=== PATIENT | male | born 1940 | race Caucasian/White ===

== ENCOUNTER 2022-08-20 12:27 | Emergency (ER) | payer OTHER ==
--- OUTSIDE RECORDS SUMMARY | 2022-08-20 12:31 | XMS REPORT | Continuity of Care Document ---
:1940 Author Organization [facility] t Address [address] [place] [address] [address]. Melvin [address] [place] [address] Care Team Providers Name Role Phone Angelica Car Attending Clinician Unavailable Problems This patient has no known problems. Allergies, Adverse Reactions, Alerts This patient has no known allergies or adverse reactions. Medications This patient has no known medications. Procedures This patient has no known procedures. Encounters Start End Encounter Admission Attending Care Care Encounter Source Date/Time Date/Time Type Type Clinicians Facility Department ID 2021-11[id number] Common 11:17:28 Angelica [id number] [facility] 2021-11-28 [facility] [id number] Common 11:16:44 Angelica [id number] [facility] 2021-11-[address] [id number] Common 11:06:43 Angelica [id number] [facility] Results This patient has no known results.
[2022-08-20] MEDS ORDERED: ASPIRIN 81 MG CHEWABLE TABLET ONE (12:43)
[2022-08-20] MEDS ORDERED: NA CHLORIDE 0.9% 500 ML ONE (12:44)
[2022-08-20 13:09] LABS: Hematocrit 46.7 % (39.6-49.0); Lymphocytes % 34.7 % (15.3-44.8); MCV 85.2 fL (80-100); MPV 7.9 fL (7.6-11.3); RBC Red Blood Cell Count 5.48 M/uL (4.33-5.43)
[2022-08-20 13:15] LABS: Protime INR 1.03
[2022-08-20 13:26] LABS: Albumin 3.7 g/dL (3.4-5.0); Bilirubin Direct 0.2 mg/dL (0-0.2); Bilirubin Total 0.5 mg/dL (0.2-1.0); Magnesium 2.3 mg/dL (1.8-2.4); Potassium 4.6 mmol/L (3.5-5.1); Protein, Total 7.9 g/dL (6.4-8.2); Troponin High Sensitivity 8.1 pg/mL (<58.9)
--- NOTE | 2022-08-20 13:32 | ER ---
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 Coronavirus screen: Vaccine status: ll1 Patient reports receiving the 2nd dose of the covid vaccine. Client denies travel out of the [place] in the last 14 days. At this time, the client does not indicate any symptoms associated with coronavirus-19. Ebola Screen: Patient denies travel to an Ebola-affected area in the 21 days before illness onset. Initial Sepsis Screen: Does the patient meet any 2 criteria? No. Patient's initial sepsis screen is negative. Does the patient have a suspected source of infection? No. Patient's initial sepsis screen is negative. Risk Assessment: Do you want to hurt yourself or someone else? Patient reports no desire to harm self or others. Onset of symptoms was August 19, 2022. 12:42 Method Of Arrival: Ambulatory ll1 12:42 Acuity: LISETH 3 ll1 Triage Assessment: 12:43 General: Appears in no apparent distress. Behavior is cooperative, appropriate for age. ll1 Pain: Complains of pain in chest Pain currently is 5 out of 10 on a pain scale. Pain began 1 day ago. Is intermittent, episodic. Cardiovascular: Parent/caregiver reports patient has had chest pain. Historical: - Allergies: 12:42 No Known Allergies; ll1 - PMHx: 12:42 Dementia; low BP; ll1 - PSHx: 12:42 None; ll1 - Immunization history:: Client reports receiving the 2nd dose of the Covid vaccine. - Social history:: Smoking status: Patient denies any tobacco usage or history of. - Family history:: not pertinent. Screenin:16 Abuse screen: Denies threats or abuse. Denies injuries from another. Nutritional tp1 screening: No deficits noted. Tuberculosis screening: No symptoms or risk factors identified. Fall Risk No fall in past 12 months (0 pts). Secondary diagnosis (15 points) dementia, IV access (20 points). Ambulatory Aid- None/Bed Rest/Nurse Assist (0 pts). Gait- Normal/Bed Rest/Wheelchair (0 pts) Mental Status- Oriented to own ability (0 pts). Total White Fall Scale indicates Low Risk Score (25-44 pts). Assessment: 12:40 General: Appears in no apparent distress. comfortable, Behavior is calm, cooperative. tp1 Pain: Complains of pain in chest Pain does not radiate. Unable to use pain scale. Patient appears to be grimacing, pt states he is pain, but will not rate on a 0-10 scale. Neuro: Level of Consciousness is awake, alert, obeys commands, Oriented to person, place, situation. Neuro: Denies blurred vision headache. Cardiovascular: Capillary refill < 3 seconds in bilateral fingers Patient's skin is warm and dry. Respiratory: Airway is patent Respiratory effort is even, unlabored. GI: Abdomen is flat, non-distended, Patient currently denies diarrhea, nausea, vomiting. : No signs and/or symptoms were reported regarding the genitourinary system. EENT: No signs and/or symptoms were reported regarding the EENT system. Derm: Skin is pink, warm \T\ dry. Musculoskeletal: Circulation, motion, and sensation intact. 13:40 Reassessment: Patient appears in no apparent distress at this time. No changes from vg1 previously documented assessment. Patient and/or family updated on plan of care and expected duration. Pain level reassessed. Patient is alert, oriented x 3, equal unlabored respirations, skin warm/dry/pink. 14:40 Reassessment: Patient appears in no apparent distress at this time. No changes from tp1 previously documented assessment. Patient is alert, oriented x 3, equal unlabored respirations, skin warm/dry/pink. Patient denies pain at this time. 14:50 Reassessment: escorted to CT via wheelchair by [employer]. tp1 15:02 Reassessment: Patient is alert/active/playful, equal unlabored respirations, skin tp1 warm/dry/pink. returned from CT. 15:07 Reassessment: Xray at bedside. tp1 15:26 Reassessment: escorted to ultrasound via wheelchair by [employer]. tp1 15:59 Reassessment: discharge pending diagnostic results. tp1 16:41 Reassessment: PT persistent on leaving before Troponin resulted, Nurse tried to educate tp1 PT and , Charge nurse attempted to educated PT and , Dr. Steward attempted to educate PT and . PT and persistent on leaving. Vital Signs: 12:42 BP 129 / 78; Pulse 53; Resp 16; Temp 97.7; Pulse Ox 100% ; Weight 54.43 kg; Height 5 ll1 ft. 7 in. (170.18 cm); Pain 5/10; 13:00 BP 160 / 80; Pulse 75; Resp 16; Pulse Ox 100% on R/A; tp1 14:00 BP 138 / 100; Resp 19; Pulse Ox 100% on R/A; tp1 15:07 BP 161 / 87; Pulse 91; Resp 16; Pulse Ox 100% on R/A; tp1 16:28 BP 152 / 95; Pulse 96; Resp 16; Pulse Ox 100% on R/A; tp1 12:42 Body Mass Index 18.79 (54.43 kg, 170.18 cm) ll1 ED Course: 12:31 Patient arrived in ED. rg4 12:32 Carroll Steward MD is Attending Physician. linnea 12:40 Nancy Crespo, NIESHA is Primary Nurse. tp1 12:40 Patient has correct armband on for positive identification. Placed in gown. Bed in low tp1 position. Call light in reach. Side rails up X2. Adult w/ patient. 12:40 Client placed on continuous cardiac and pulse oximetry monitoring. NIBP monitoring tp1 applied. 12:41 Arm band placed on Patient placed in an exam room, on a stretcher. ll1 12:43 Triage completed. ll1 13:14 EKG done. Inserted saline lock: 22 gauge in right forearm, using aseptic technique. tp1 14:23 Note: pt wanted to wait on having the chest x-ray done bc they are out of network.. mh1 14:43 Assisted to bathroom. tp1 14:55 CT Chest For PE Angio In Process Unspecified. EDMS 15:25 XRAY Chest (1 view) In Process Unspecified. EDMS 15:40 IV discontinued, intact, bleeding controlled, No redness/swelling at site. Pressure tp1 dressing applied. 15:40 No provider procedures requiring assistance completed. Patient maintains SpO2 tp1 saturation greater than 95% on room air. 15:54 Serg Sin MD is Referral Physician. linnea 16:29 US Extremity Venous W Compression [place] In Process Unspecified. EDMS Administered Medications: 12:48 Drug: Aspirin 81 mg Route: PO; tp1 14:44 Follow up: Response: No adverse reaction tp1 13:14 Drug: NS 0.9% 500 ml Route: IV; Rate: bolus; Site: right forearm; tp1 14:44 Follow up: IV Status: Completed infusion; IV Intake: 500ml tp1 14:30 Drug: Pepcid (famotidine) 20 mg Route: IVP; Site: right wrist; tp1 16:00 Follow up: Response: No adverse reaction tp1 14:39 Drug: PlaVIX (clopidogrel) 75 mg Route: PO; tp1 16:00 Follow up: Response: No adverse reaction tp1 14:44 Not Given (Patient Refused): Lovenox (enoxaparin) 1 mg/kg Sub-Q once tp1 Medication: 16:51 VIS not applicable for this client. tp1 Intake: 14:44 IV: 500ml; Total: 500ml. tp1 Outcome: 13:31 ER care complete, transfer ordered by . linnea 15:54 Discharge ordered by MD. linnea 16:51 Discharged to home ambulatory, with family. tp1 16:51 Condition: good 16:51 Discharge instructions given to patient, family, Instructed on discharge instructions, follow up and referral plans. Demonstrated understanding of instructions, follow-up care. 16:51 Patient left the ED. tp1 Signatures: Dispatcher [employer] EDMS Carroll Steward MD MD cha Harvey, Martha 1 Jeniffer Tyson 4 Berna Tyson, RN RN vg1 Cassia Salazar RN RN ll1 Nancy Crespo RN RN tp1
--- NOTE | 2022-08-20 13:32 | EDPHYS ---
Physician Documentation [facility] Name: Kvng Epstein Age: 82 yrs Sex: Male : 1940 Arrival Date: 08/20/2022 Time: 12:31 Bed 5 Private MD: ED Physician Carroll Steward HPI: 08/20 13:24 This 82 yrs old Male presents to ER via Ambulatory with complaints of Chest linnea Pain. 13:24 The patient or guardian reports chest pain that is located primarily in the substernal linnea area. Onset: 1 day(s) ago. The pain does not radiate. Associated signs and symptoms: The patient has no apparent associated signs or symptoms. The chest pain is described as aching, a pressure. Duration: The patient or guardian reports multiple episodes, with no pattern. Modifying factors: The symptoms are alleviated by nothing. the symptoms are aggravated by activity. Severity of pain: At its worst the pain was moderate in the emergency department the pain has improved moderately. Historical: - Allergies: 12:42 No Known Allergies; ll1 - PMHx: 12:42 Dementia; low BP; ll1 - PSHx: 12:42 None; ll1 - Immunization history:: Client reports receiving the 2nd dose of the Covid vaccine. - Social history:: Smoking status: Patient denies any tobacco usage or history of. - Family history:: not pertinent. ROS: 13:24 Constitutional: Negative for fever, chills, and weight loss, Eyes: Negative for injury, linnea pain, redness, and discharge, ENT: Negative for injury, pain, and discharge, Neck: Negative for injury, pain, and swelling, Respiratory: Negative for shortness of breath, cough, wheezing, and pleuritic chest pain, Abdomen/GI: Negative for abdominal pain, nausea, vomiting, diarrhea, and constipation, Back: Negative for injury and pain, : Negative for injury, bleeding, discharge, and swelling, MS/Extremity: Negative for injury and deformity, Skin: Negative for injury, rash, and discoloration, Neuro: Negative for headache, weakness, numbness, tingling, and seizure, Psych: Negative for depression, anxiety, suicide ideation, homicidal ideation, and hallucinations, Allergy/Immunology: Negative for hives, rash, and allergies, Endocrine: Negative for neck swelling, polydipsia, polyuria, polyphagia, and marked weight changes, Hematologic/Lymphatic: Negative for swollen nodes, abnormal bleeding, and unusual bruising. 13:24 Cardiovascular: Positive for chest pain. Exam: 13:24 Constitutional: This is a well developed, well nourished patient who is awake, alert, linnea and in no acute distress. Head/Face: Normocephalic, atraumatic. Eyes: Pupils equal round and reactive to light, extra-ocular motions intact. Lids and lashes normal. Conjunctiva and sclera are non-icteric and not injected. Cornea within normal limits. Periorbital areas with no swelling, redness, or edema. ENT: Nares patent. No nasal discharge, no septal abnormalities noted. Tympanic membranes are normal and external auditory canals are clear. Oropharynx with no redness, swelling, or masses, exudates, or evidence of obstruction, uvula midline. Mucous membranes moist. Neck: Trachea midline, no thyromegaly or masses palpated, and no cervical lymphadenopathy. Supple, full range of motion without nuchal rigidity, or vertebral point tenderness. No Meningismus. Chest/axilla: Normal chest wall appearance and motion. Nontender with no deformity. No lesions are appreciated. Respiratory: Lungs have equal breath sounds bilaterally, clear to auscultation and percussion. No rales, rhonchi or wheezes noted. No increased work of breathing, no retractions or nasal flaring. Abdomen/GI: Soft, non-tender, with normal bowel sounds. No distension or tympany. No guarding or rebound. No evidence of tenderness throughout. Back: No spinal tenderness. No costovertebral tenderness. Full range of motion. Male : Normal genitalia with no discharge or lesions. Skin: Warm, dry with normal turgor. Normal color with no rashes, no lesions, and no evidence of cellulitis. MS/ Extremity: Pulses equal, no cyanosis. Neurovascular intact. Full, normal range of motion. Neuro: Awake and alert, GCS 15, oriented to person, place, time, and situation. Cranial nerves II-XII grossly intact. Motor strength 5/5 in all extremities. Sensory grossly intact. Cerebellar exam normal. Normal gait. Psych: Awake, alert, with orientation to person, place and time. Behavior, mood, and affect are within normal limits. 13:24 ECG was reviewed by the Attending Physician. 13:24 Musculoskeletal/extremity: Extremities: all appear grossly normal, with no appreciated pain with palpation, ROM: no acute changes, Circulation is intact in all extremities. Sensation intact. Compartment Syndrome exam of affected extremity: is normal. DVT Exam: No signs of deep vein thrombosis. no pain, no swelling, no tenderness, negative Homans' sign noted on exam, no appreciated bluish discoloration, no erythema, no increased warmth. Vital Signs: 12:42 BP 129 / 78; Pulse 53; Resp 16; Temp 97.7; Pulse Ox 100% ; Weight 54.43 kg; Height 5 ll1 ft. 7 in. (170.18 cm); Pain 5/10; 13:00 BP 160 / 80; Pulse 75; Resp 16; Pulse Ox 100% on R/A; tp1 14:00 BP 138 / 100; Resp 19; Pulse Ox 100% on R/A; tp1 15:07 BP 161 / 87; Pulse 91; Resp 16; Pulse Ox 100% on R/A; tp1 16:28 BP 152 / 95; Pulse 96; Resp 16; Pulse Ox 100% on R/A; tp1 12:42 Body Mass Index 18.79 (54.43 kg, 170.18 cm) ll1 MDM: 12:33 Patient medically screened. linnea 13:28 Differential diagnosis: abnormal EKG, acute myocardial infarction, acute pericarditis, linnea anxiety, coronary artery disease chest wall pain, congestive heart failure Cholelithiasis costochondritis, esophagitis, pancreatitis, pulmonary embolus, stable angina, unstable angina. HEART Score: History: Moderately Suspicious (1), ECG: Normal (0), Age: > or = 65 years (2), Risk Factors: 1 or 2 risk factors (1), [Hypercholesterolemia] [Obesity] Troponin: < or = 1 x Normal Limit (0). The patient was given aspirin in the Emergency Department. The patient's deep vein thrombosis risk score was calculated as follows: Total Score: 0. This patient was found to be at low risk for a deep vein thrombosis by using the Well's assessment criteria. The patient's pulmonary embolism risk score was calculated as follows: Total Score: 0-2 points. This patient was found to be at low risk for a pulmonary embolism by using the Well's assessment criteria. JORGE ALBERTO Risk Score: 1 - patient's age is greater or equal to 65 years, 1- Known CAD, 1 - Recent [<24hrs] Severe Angina, TOTAL SCORE = 2. Data reviewed: vital signs, nurses notes, lab test result(s), EKG, radiologic studies, plain films. Data interpreted: environmental monitoring technician: rate is 53 beats/min, rhythm is sinus bradycardia, Pulse oximetry: on room air is 100 %. Test interpretation: by ED physician or midlevel provider: ECG, plain radiologic studies. Counseling: I had a detailed discussion with the patient and/or guardian regarding: the historical points, exam findings, and any diagnostic results supporting the discharge/admit diagnosis, lab results, radiology results. 08/20 12:35 Order name: Basic Metabolic Panel; Complete Time: 13:32 linnea 08/20 12:35 Order name: CBC with Diff; Complete Time: 15:53 linnea 08/20 12:35 Order name: LFT's; Complete Time: 13:32 linnea 08/20 12:35 Order name: Magnesium; Complete Time: 13:32 linnea 08/20 12:35 Order name: NT PRO-BNP; Complete Time: 13:32 linnea 08/20 12:35 Order name: PT-INR; Complete Time: 13:32 linnea 08/20 12:35 Order name: Troponin HS; Complete Time: 13:32 linnea 08/20 12:35 Order name: XRAY Chest (1 view); Complete Time: 15:53 linnea 08/20 12:35 Order name: Lipase; Complete Time: 13:32 linnea 08/20 12:35 Order name: SARS RAPID; Complete Time: 14:18 linnea 08/20 13:15 Order name: CBC Smear Scan; Complete Time: 15:53 EDMS 08/20 14:16 Order name: DD; Complete Time: 15:53 bd 08/20 14:53 Order name: Urine Dipstick-Ancillary; Complete Time: 15:53 EDMS 08/20 15:54 Order name: Troponin High Sensitivity: 400 PM linnea 08/20 12:35 Order name: EKG; Complete Time: 12:36 linnea 08/20 12:35 Order name: Cardiac monitoring; Complete Time: 13:09 linnea 08/20 12:35 Order name: EKG - Nurse/Tech; Complete Time: 13:09 linnea 08/20 12:35 Order name: IV Saline Lock; Complete Time: 14:18 linnea 08/20 12:35 Order name: Labs collected and sent; Complete Time: 13: [facility] 08/20 12:35 Order name: O2 Per Protocol; Complete Time: 13: [facility] 08/20 12:35 Order name: O2 Sat Monitoring; Complete Time: 13: [facility] 08/20 14:40 Order name: US Extremity Venous W Compression [place] [facility] 08/20 14:40 Order name: CT Chest For PE Angio; Complete Time: 15:53 linnea EC:24 Rate is 52 beats/min. Rhythm is regular. QRS B[place]l is Normal. [place] interval is normal. QRS linnea interval is normal. QT interval is normal. No Q waves. T waves are Normal. No ST changes noted. Clinical impression: Sinus bradycardia and No evidence of ischemia. Interpreted by me. Reviewed by me. Administered Medications: 12:48 Drug: Aspirin 81 mg Route: PO; tp1 14:44 Follow up: Response: No adverse reaction tp1 13:14 Drug: NS 0.9% 500 ml Route: IV; Rate: bolus; Site: right forearm; tp1 14:44 Follow up: IV Status: Completed infusion; IV Intake: 500ml tp1 14:30 Drug: Pepcid (famotidine) 20 mg Route: IVP; Site: right wrist; tp1 16:00 Follow up: Response: No adverse reaction tp1 14:39 Drug: PlaVIX (clopidogrel) 75 mg Route: PO; tp1 16:00 Follow up: Response: No adverse reaction tp1 14:44 Not Given (Patient Refused): Lovenox (enoxaparin) 1 mg/kg Sub-Q once tp1 Disposition Summary: 08/20/22 15:54 Discharge Ordered Location: Home linnea Problem: new(08/20/22 15:54) linnea Symptoms: have improved(08/20/22 15:54) linnea Condition: Stable(08/20/22 15:54) linnea Diagnosis - Chest pain, unspecified - WALL(08/20/22 15:54) linnea - Strain of muscle and tendon of front wall of thorax linnea - Dementia in other 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 disturbance linnea Followup: linnea - With: Private Physician - When: 1 - 2 days - Reason: Recheck today's complaints, Continuance of care, Re-evaluation by your physician Followup: linnea - With: - When: 2 - 3 days - Reason: Recheck today's complaints, Re-evaluation by your physician Discharge Instructions: - Discharge Summary Sheet linnea - Nonspecific Chest Pain, Adult linnea - Chest Wall Pain linnea - Dementia linnea - Chest Wall Pain, [id number] linnea - Nonspecific Chest Pain, Adult, [id number] linnea - Aspirin and Your Heart linnea Forms: - Medication Reconciliation Form linnea - Thank You Letter linnea - Antibiotic Education linnea - Prescription Opioid Use linnea Signatures: Dispatcher [employer] EDCarroll Jones MD MD cha Lewis, Lynsay RN RN ll1 Nancy Crespo RN RN tp1 Corrections: (The following items were deleted from the chart) 14:35 13:31 TO [facility] linnea linnea 14:35 13:31 's Administration System linnea linnea 14:35 13:31 Higher level of care linnea linnea 14:35 13:31 Stable linnea linnea 14:35 13:31 new linnea linnea 14:35 13:31 have improved linnea linnea 14:35 13:31 Chest pain, unspecified linnea linnea 14:35 13:31 Angina pectoris, unspecified linnea linnea
[2022-08-20 13:38] LABS: SARS-CoV-2 Antigen Rapid Res Negative (Negative)
[2022-08-20] MEDS ORDERED: CLOPIDOGREL 75 MG TABLET ONE (14:23)
[2022-08-20] MEDS ORDERED: FAMOTIDINE 20 MG/2 ML VIAL IV ONE (14:23)
[2022-08-20] MEDS ORDERED: ENOXAPARIN 60 MG/0.6 ML SQ ONE (14:24)
[2022-08-20 14:53] LABS: Urine Blood Negative (Negative); Urine Glucose Negative (Negative); Urine Protein Negative (Negative)
--- NOTE | 2022-08-20 15:08 | RAD REPORT ---
EXAM DESCRIPTION: CT - Chest For Pe Angio - 08/20/2022 2:54 pm CLINICAL HISTORY: Chest pain COMPARISON: None. TECHNIQUE: Dynamically enhanced axial 3 mm thick images of the chest were obtained during administra tion of <100> mL Isovue 370 IV contrast. Coronal and oblique reconstruction images were generated and reviewed. Exam utilizes a protocol for optimal evaluation of pulmonary arterial tree. Maximum intensity projections 3D imaging was utilized All CT scans are performed using dose optimization technique as appropriate and may include automated exposure control or mA/KV adjustment according to patient size. FINDINGS: A pulmonary embolus is not seen. A thoracic aortic aneurysm is not noted. A pleural effusion is not seen. A pericardial effusion is not seen. Bilateral calcified pleural plaques. A lung consolidation is not present. IMPRESSION: Negative for a pulmonary embolism.
[2022-08-20 15:27] LABS: Blood Morphology Comment NOT SEEN (NOT SEEN); Platelet Estimate ADEQ; White Blood Cell Scan OK (OK)
--- NOTE | 2022-08-20 15:34 | RAD REPORT ---
EXAM DESCRIPTION: Les Single View08/20/2022 3:23 pm CLINICAL HISTORY: Chest pain COMPARISON: 2016 FINDINGS: Bilateral calcified pleural plaques. The lungs appear clear of acute infiltrate. The heart is normal size IMPRESSION: Asbestos related pleural disease No acute abnormality displayed
--- NOTE | 2022-08-20 17:04 | RAD REPORT ---
EXAM DESCRIPTION: USExtrem Venous W Compress Bil08/20/2022 4:27 pm CLINICAL HISTORY: Leg pain COMPARISON: none FINDINGS: The common femoral, superficial femoral, popliteal and posterior tibial veins bilaterally are compressible and demonstrate augmentation. Doppler demonstrates good flow. Grayscale, color and spectral analysis performed on all vessels IMPRESSION: No evidence of deep venous thrombosis involving either lower extremity.
[2022-08-20 17:43] VITALS: O2SAT 100
[2022-08-20 17:45] VITALS: BP 152/95
--- NOTE | 2022-08-21 16:35 | EKG ---
Test Date: 2022-08-20 Test Time: 12:58:48 Lacquer Pin Press Operator: MEASUREMENT RESULTS: Intervals: Rate: 52 NE: 122 QRSD: 74 QT: 434 QTc: 403 [place]: P: 65 NE: 122 QRS: 67 T: 71 INTERPRETIVE STATEMENTS: Sinus bradycardia Otherwise normal ECG Compared to ECG 05/10/2016 09:29:57 No significant changes Electronically Signed On 08-21-22 16:34:28 CDT by Shady Navarro
== END 2022-08-20 16:51 | disposition home or self-care (01) ==
LOC: ER 12:27
DX: R07.89 Other chest pain (principal); S29.011A Strain of muscle and tendon of front wall of thorax, initial encounter; F02.80 Dementia in other diseases classified elsewhere, unspecified severity, without behavioral disturbance, psychotic disturbance, mood disturbance, and anxiety; Z20.822 Contact with and (suspected) exposure to COVID-19
CPT/HCPCS: 96361; 93005; 85025; 80048; 36415; 83735; 85610; 85379; 80076; 81003; 84484 ×2; 83690; 83880; 71275; 71045; 93970; 96374; 99284; 87811; Q9967; J7040; J1650

== ENCOUNTER 2023-09-02 08:18 | Emergency (ER) | payer OTHER ==
--- OUTSIDE RECORDS SUMMARY | 2023-09-02 08:22 | XMS REPORT | Continuity of Care Document ---
:1940 Author Organization [facility] t Address [address] [facility] [address] [place] [address] Care Team Providers Name Role Phone Angelica [...] Clinicians Facility Department ID 2021-11-28 [id number] Common 11:17:28 Angelica [id number] [facility] 2021-11-[address] [id number] Common 11:16:44 Angelica [id number] [facility] 2021-11-[address] [facility] [id number] Common 11:06:43 Angelica [id number] [facility] Results This patient has no known results.
--- NOTE | 2023-09-02 08:40 | RAD REPORT ---
EXAM DESCRIPTION: CT - Head Brain Wo Cont - 09/02/2023 8:32 am CLINICAL HISTORY: fall;Declining state COMPARISON: No comparisons TECHNIQUE: All CT scans are performed using dose optimization technique as appropriate and may inclu de automated exposure control or mA/KV adjustment according to patient size. FINDINGS: No intracranial hemorrhage, hydrocephalus or extra-axial fluid collection.No areas of brai n edema or evidence of midline shift. Age advanced cerebral atrophy and at least moderate chronic sma ll vessel ischemic changes. 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 Left maxillary sinus opacification. The calvarium is intact. IMPRESSION: No acute intracranial abnormality. 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
--- NOTE | 2023-09-02 08:44 | RAD REPORT ---
EXAM DESCRIPTION: RAD - Chest Single View - 09/02/2023 8:38 am CLINICAL HISTORY: MALAISE COMPARISON: Chest Single View dated 08/20/2022; Chest Single View dated 05/10/2016; CHEST PA AND LAT 2 VIEW dated 11/07/2013; Chest For Pe Angio dated 08/20/2022 FINDINGS: Lines: None. Lungs: No evidence of edema or pneumonia. Pleural: Calcified pleural plaques. Cardiac: The heart size is within normal limits. Mediastinum: Within normal limits. Bones: No acute fractures. Other: None IMPRESSION: No acute cardiopulmonary disease. Calcified pleural plaques likely reflecting asbestos e xposure.
[2023-09-02 08:55] LABS: Absolute Lymphocytes (CBC) 1.3 K/uL (0.7-4.9); Hematocrit 43.8 % (39.6-49.0); Lymphocytes % 17.7 % (15.3-44.8); MCV 84.5 fL (80-100); MPV 7.6 fL (7.6-11.3); Platelets 257 thou/uL (152-406); RBC Red Blood Cell Count 5.19 M/uL (4.33-5.43)
[2023-09-02 09:19] LABS: Albumin 3.4 g/dL (3.4-5.0); Bilirubin Direct 0.1 mg/dL (0-0.2); Bilirubin Indirect, Calculated 0.3 mg/dL (0.2-0.8); Bilirubin Total 0.4 mg/dL (0.2-1.0); Magnesium 2.2 mg/dL (1.6-2.4); Potassium 4.3 mEq/L (3.5-5.1); Protein, Total 7.2 g/dL (6.4-8.2)
[2023-09-02 10:05] LABS: Specific Gravity 1.022 (1.005-1.030); Urine Bacteria None Seen /HPF (<20); Urine Bilirubin NEGATIVE (Negative); Urine Blood Negative (Negative); Urine Clarity Turbid (Clear); Urine Color Yellow (Yellow); Urine Glucose NEGATIVE (Negative); Urine Mucus 3+ /HPF (None Seen); Urine Protein TRACE (Negative); Urine RBC <5 /HPF (None Seen); Urine Urobilinogen Normal (Normal); Urine pH 5.5 (5.0-7.0)
--- NOTE | 2023-09-02 10:10 | EDPHYS ---
Physician Documentation [facility] Name: Kvng Epstein Age: 83 yrs Sex: Male : 1940 Arrival Date: 09/02/2023 Time: 08:18 Bed 2 Private MD: ED Physician Ildefonso Ya HPI: 09/02 08:42 This 83 yrs old Male presents to ER via EMS with complaints of Fall Injury. snw 08:42 Details of fall: The patient fell from an upright position, while standing. Onset: The snw symptoms/episode began/occurred suddenly, just prior to arrival. Associated injuries: The patient sustained no obvious injury. Severity of symptoms: At their worst the symptoms were very mild. It is unknown whether or not the patient has had similar symptoms in the past. It is unknown whether or not the patient has recently seen a physician. caught pt prior to landing, no injury to head. Historical: - Allergies: 10:09 No Known Allergies; iw - Home Meds: 08:32 omeprazole 20 mg Oral Tablet,disintegrating,delayed release daily [Active]; memantine iw 10 mg oral tablet every morning [Active]; docusate sodium 100 mg Oral tablet daily [Active]; meclizine 12.5 mg Oral tablet 3 times per day [Active]; - PMHx: 08:21 Dementia; low bp; iw ROS: 08:42 Eyes: Negative for injury, pain, redness, and discharge, ENT: Negative for injury, snw pain, and discharge, Neck: Negative for injury, pain, and swelling, Cardiovascular: Negative for chest pain, palpitations, and edema, Respiratory: Negative for shortness of breath, cough, wheezing, and pleuritic chest pain, Abdomen/GI: Negative for abdominal pain, nausea, vomiting, diarrhea, and constipation, Back: Negative for injury and pain, : Negative for injury, bleeding, discharge, and swelling, MS/Extremity: Negative for injury and deformity, Skin: Negative for injury, rash, and discoloration, 08:42 Constitutional: Positive for malaise, "loss of interest in living", 08:42 Neuro: Positive for dementia, tremor, 08:42 Psych: Positive for depression, Exam: 08:21 Head/Face: Normocephalic, atraumatic. Eyes: Pupils equal round and reactive to light, snw extra-ocular motions intact. Lids and lashes normal. Conjunctiva and sclera are non-icteric and not injected. Cornea within normal limits. Periorbital areas with no swelling, redness, or edema. ENT: Nares patent. No nasal discharge, no septal abnormalities noted. Tympanic membranes are normal and external auditory canals are clear. Oropharynx with no redness, swelling, or masses, exudates, or evidence of obstruction, uvula midline. Mucous membranes moist. Neck: Trachea midline, no thyromegaly or masses palpated, and no cervical lymphadenopathy. Supple, full range of motion without nuchal rigidity, or vertebral point tenderness. No Meningismus. Chest/axilla: Normal chest wall appearance and motion. Nontender with no deformity. No lesions are appreciated. Cardiovascular: Regular rate and rhythm with a normal S1 and S2. No gallops, murmurs, or rubs. Normal PMI, no JVD. No pulse deficits. Respiratory: Lungs have equal breath sounds bilaterally, clear to auscultation and percussion. No rales, rhonchi or wheezes noted. No increased work of breathing, no retractions or nasal flaring. Abdomen/GI: Soft, non-tender, with normal bowel sounds. No distension or tympany. No guarding or rebound. No evidence of tenderness throughout. Back: No spinal tenderness. No costovertebral tenderness. Full range of motion. 08:21 MS/ Extremity: Pulses equal, no cyanosis. Neurovascular intact. Full, normal range of motion. 08:21 Constitutional: The patient appears alert, frail, shivering 08:21 Skin: Appearance: Color: normal in color, Temperature: cool, 08:21 Neuro: Orientation: unable to test, the patient has a history of dementia, Gait: not tested. Babinski testing reveals upgoing toes, bilat. Vital Signs: 08:22 BP 111 / 74; Pulse 62; Resp 16; Temp 98.5; Pulse Ox 100% on R/A; iw 09:46 BP 104 / 86; Pulse 70; Resp 16; Pulse Ox 100% on R/A; iw MDM: 08:32 Patient medically screened. snw 10:07 Differential diagnosis: closed head injury, infection, arrhythmia. Data reviewed: vital snw signs, nurses notes, lab test result(s), EKG, radiologic studies. Care significantly affected by the following chronic conditions: dementia. Counseling: I had a detailed discussion with the patient and/or guardian regarding the historical points, exam findings, and any diagnostic results supporting the discharge/admit diagnosis, lab results, radiology results, the need for outpatient follow up, for definitive care, a family practitioner, to return to the emergency department if symptoms worsen or persist or if there are any questions or concerns that arise at home. Response to treatment: There is no appreciated change of the patient's symptoms at this time. Special discussion: Based on the history and exam findings, there is no indication for further emergent testing or inpatient evaluation. I discussed with the patient/guardian the need to see the primary care provider for further evaluation of the symptoms. 09/02 08:21 Order name: Basic Metabolic Panel; Complete Time: 09:27 snw 09/02 08:21 Order name: CBC with Diff; Complete Time: 08:58 snw 09/02 08:21 Order name: LFT's; Complete Time: 09:27 snw 09/02 08:21 Order name: Magnesium; Complete Time: 09:27 snw 09/02 08:21 Order name: Urine W/Microscopic (UAM); Complete Time: 10:07 snw 09/02 08:21 Order name: CT Head Brain wo Cont; Complete Time: 08:44 snw 09/02 08:21 Order name: XRAY Chest (1 view); Complete Time: 08:45 snw 09/02 08:21 Order name: EKG; Complete Time: 08:22 snw 09/02 08:21 Order name: Cardiac monitoring; Complete Time: 08:50 snw 09/02 08:21 Order name: EKG - Nurse/Tech; Complete Time: 08:50 snw 09/02 08:21 Order name: IV Saline Lock; Complete Time: 08:50 snw 09/02 08:21 Order name: Labs collected and sent; Complete Time: 08:50 snw 09/02 08:21 Order name: O2 Per Protocol; Complete Time: 08:50 snw 09/02 08:21 Order name: O2 Sat Monitoring; Complete Time: 08:50 snw EC:50 Rate is 71 beats/min. Rhythm is regular. QRS interval is normal. QT interval is normal. snw Clinical impression: NSR w/ Non-specific ST/T Changes. Administered Medications: No medications were administered Disposition: 10:49 Co-signature as Attending Physician, Ildefonso Ya MD I reviewed the patient's care rn provided by the Advanced Practice Provider and agree with the diagnosis and treatment plan. Disposition Summary: 09/02/23 10:09 Discharge Ordered Notes: Location: Home snw Condition: Stable snw Diagnosis - Other malaise and fatigue snw - Fall on same level, unspecified snw - Dementia in other 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 disturbance snw Followup: snw - With: Emergency Department - When: As needed - Reason: Worsening of condition Followup: snw - With: Private Physician - When: 1 - 2 days - Reason: Recheck today's complaints, Continuance of care, Re-evaluation by your physician Discharge Instructions: - Discharge Summary Sheet snw - Dementia snw - Fatigue snw Forms: - Medication Reconciliation Form snw - Thank You Letter snw - Antibiotic Education snw - Prescription Opioid Use snw - Patient Portal Instructions snw - Leadership Thank You Letter snw Signatures: Dispatcher [employer] Shilpa Collins FNP-C MULTIMEDIA SERVICES MANAGER-Cs[employer] Sandy Bal, RN RN iw Ildefonso Ya MD MD rn
--- NOTE | 2023-09-02 10:10 | ER ---
Nurse's Notes [facility] Name: Kvng Epstein Age: 83 yrs Sex: Male : 1940 Arrival Date: 09/02/2023 Time: 08:18 Bed 2 Private MD: Diagnosis: Other malaise and fatigue;Fall on same level, unspecified;Dementia in other 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 disturbance Presentation: 09/02 08:20 Chief complaint: EMS states: toned out for fall from home, was able to catch pt, iw did not hit head, hx of dementia, has not been eating. 08:20 Acuity: LISETH 3 iw 08:21 Coronavirus screen: At this time, the client does not indicate any symptoms associated iw with coronavirus-19. Ebola Screen: Patient negative for fever greater than or equal to 101.5 degrees Fahrenheit, and additional compatible Ebola Virus Disease symptoms Patient denies exposure to infectious person. Patient denies travel to an Ebola-affected area in the 21 days before illness onset. No symptoms or risks identified at this time. Initial Sepsis Screen: Does the patient meet any 2 criteria? No. Patient's initial sepsis screen is negative. Does the patient have a suspected source of infection? No. Patient's initial sepsis screen is negative. Risk Assessment: Do you want to hurt yourself or someone else? Patient reports no desire to harm self or others. Onset of symptoms was September 02, 2023. 08:21 Method Of Arrival: EMS: [facility] iw Historical: - Allergies: 10:09 No Known Allergies; iw - Home Meds: 08:32 omeprazole 20 mg Oral Tablet,disintegrating,delayed release daily [Active]; memantine iw 10 mg oral tablet every morning [Active]; docusate sodium 100 mg Oral tablet daily [Active]; meclizine 12.5 mg Oral tablet 3 times per day [Active]; - PMHx: 08:21 Dementia; low bp; iw Vital Signs: 08:22 BP 111 / 74; Pulse 62; Resp 16; Temp 98.5; Pulse Ox 100% on R/A; iw 09:46 BP 104 / 86; Pulse 70; Resp 16; Pulse Ox 100% on R/A; iw ED Course: 08:20 Patient arrived in ED. snw 08:21 Triage completed. iw 08:22 Arm band placed on. iw 08:32 Shilpa Beckwith FNP-C is PHCP. snw 08:32 Ildefonso Ya MD is Attending Physician. snw 08:34 CT Head Brain wo Cont In Process Unspecified. EDMS 08:34 Sandy Bal, RN is Primary Nurse. iw 08:39 XRAY Chest (1 view) In Process Unspecified. EDMS 08:50 Maintain EMS IV. Dressing intact. Good blood return noted. Site clean \T\ dry. Gauge \T\ iw site: 20 RAC. 09:49 Urine W/Microscopic (UAM) Sent. iw Administered Medications: No medications were administered Outcome: 10:09 Discharge ordered by . snw 10:36 Patient left the ED. iw Signatures: Dispatcher [employer] EDMS Shilpa Beckwith FNP-C LOGISTICS OPERATIONS MANAGER-[employer] Sandy Bal RN RN iw Corrections: (The following items were deleted from the chart) 10:08 08:22 BP 111 / 74; Pulse 62bpm; Resp 16bpm; Pulse Ox 100% RA; iw iw
[2023-09-02 10:42] VITALS: BP 104/86; TEMP 98.5; O2SAT 100
--- NOTE | 2023-09-04 09:52 | EKG ---
Test Date: 2023-09-02 Test Time: 08:45:24 Director Of Search Engine Optimization: ASHLEY MEASUREMENT RESULTS: Intervals: Rate: 71 MI: 162 QRSD: 62 QT: 392 QTc: 425 [place]: P: 76 MI: 162 QRS: 71 T: 74 INTERPRETIVE STATEMENTS: Normal sinus rhythm Normal ECG Compared to ECG 08/20/2022 12:58:48 Sinus bradycardia no longer present Electronically Signed On 09-04-23 09:47:02 CDT by Shady Navarro
== END 2023-09-02 10:36 | disposition home or self-care (01) ==
LOC: ER 08:18
DX: R53.81 Other malaise (principal); R53.83 Other fatigue; F02.80 Dementia in other diseases classified elsewhere, unspecified severity, without behavioral disturbance, psychotic disturbance, mood disturbance, and anxiety; W18.30XA Fall on same level, unspecified, initial encounter
CPT/HCPCS: 36415; 70450; 71045; 80048; 80076; 81001; 83735; 85025; 93005; 99283